=== PATIENT | male | born 1990 | race Caucasian/White ===

== ENCOUNTER 2017-05-18 16:28 | Inpatient (IN) | payer BC, OTHER ==
[2017-05-18] MEDS ORDERED: Lactated Ringers 500 ML IV ONE (16:38)
[2017-05-18] MEDS ORDERED: fentaNYL 100 MCG/2 ML SDV IVPUSH ONE ×2 (16:39→16:59)
[2017-05-18] MEDS: Sodium Chloride 0.9% 10 ML Syringe FLUSH ONE (16:40)
[2017-05-18] MEDS ORDERED: Iopamidol 612 MG/ML 150 ML Bottle IVPUSH ONE ×2 (16:54→17:23)
--- NOTE | 2017-05-18 17:01 | EDM.PDOC ---
ED HPI GENERAL MEDICAL PROBLEM - General Chief Complaint: Abdominal Pain Stated Complaint: POSS INTERNAL BLEEDING Time Seen by Provider: 05/18/17 17:00 - History of Present Illness INITIAL COMMENTS - FREE TEXT/NARRATIVE: 27-year-old male sent here by occupational medicine with significant chest injury. 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 The patient was hit his right chest. He did not hit his head he had no loss of consciousness he has significant right- sided chest discomfort. He does not feel short of breath at this time he's had no nausea vomiting or other problems at this time. The patient is on no routine medications. Patient does smoke about a pack per day however none Right Chest Pain Score (Numeric/FACES): 10 - Related Data Allergies Allergy/AdvReac Type Severity Reaction Status Date / Time cephalexin monohydrate Allergy Cannot Verified 10/25/13 18:14 [From Keflex] Remember Penicillins Allergy Cannot Verified 10/25/13 18:14 Remember Sulfa (Sulfonamide Allergy Cannot Verified 10/25/13 18:14 Antibiotics) Remember Home Meds: Home Meds . [No Known Home Meds] 05/18/17 [History] Past Medical History - Past Health History Medical/Surgical History: Denies Medical/Surgical History Musculoskeletal History: Reports: Other (See Below) Other Musculoskeletal History: right hand reconstruction and left finger surgery Social & Family History - Tobacco Use Smoking Status *Q: Current Every Day Smoker Years of Tobacco use: 12 Packs/Tins Daily: 1 Second Hand Smoke Exposure: No - Alcohol Use Days Per Week of Alcohol Use: 0 - Recreational Drug Use Recreational Drug Use: No Review of Systems - Review of Systems Review Of Systems: See Below Constitutional: Reports: No Symptoms Eyes: Reports: No Symptoms Ears: Reports: No Symptoms Nose: Reports: No Symptoms Mouth/Throat: Reports: No Symptoms Respiratory: Reports: Pleuritic Chest Pain. Denies: Shortness of Breath Cardiovascular: Reports: Chest Pain. Denies: Palpitations GI/Abdominal: Reports: No Symptoms Genitourinary: Reports: No Symptoms Musculoskeletal: Reports: No Symptoms Skin: Reports: No Symptoms Neurological: Reports: No Symptoms Psychiatric: Reports: No Symptoms ED EXAM, GENERAL - Physical Exam Exam: See Below Exam Limited By: No Limitations General Appearance: Alert, Mild Distress (From his chest wall pain) Eye Exam: Bilateral Eye: Normal Inspection Ears: Normal External Exam, Normal Canal, Hearing Grossly Normal, Normal TMs Nose: Normal Inspection, Normal Mucosa, No Blood Throat/Mouth: Normal Inspection, Normal Lips, Normal Teeth, Normal Gums, Normal Oropharynx, Normal Voice, No Airway Compromise Head: Atraumatic, Normocephalic Neck: Normal Inspection, Supple, Non-Tender, Full Range of Motion. No: Tender Midline Respiratory/Chest: Other (Decreased breath sounds on the right) Cardiovascular: Regular Rate, Rhythm, No Edema, No Murmur GI/Abdominal: Other (Hypoactive bowel sounds however they are presentspecific tenderness with palpation no rebound or guarding noted he has what could be developing ecchymosis lateral anterior chest wall and upper abdominal) Back Exam: Normal Inspection. No: CVA Tenderness (L), CVA Tenderness (R), Vertebral Tenderness Extremities: Other (No upper or lower extremity tenderness outpatient pelvis is stable and nontender) Neurological: Alert, Oriented, Normal Cognition Psychiatric: Normal Affect Course - Vital Signs Last Recorded V/S: Last Vital Signs Temp 37.0 C 05/18/17 17:13 Pulse 89 05/18/17 17:13 Resp 20 05/18/17 17:13 BP 136/85 05/18/17 17:13 Pulse Ox 98 05/18/17 17:13 - Orders/Labs/Meds Orders: Active Orders 24 hr Category Date Time Status Chest Abdomen Pelvis w Cont [CT] Stat Exams 05/18/17 16:47 Ordered CBC WITH MANUAL DIFF [HEME] Stat Lab 05/18/17 16:40 Results URINALYSIS W/MICROSCOPIC [UA W/MICROSCOPIC] [URIN] Stat Lab 05/18/17 16:32 Uncollected Labs: Laboratory Tests 05/18/17 05/18/17 Range/Units 16:40 16:40 WBC 20.88 H (4.23-9.07) K/mm3 RBC 5.09 (4.63-6.08) M/mm3 Hgb 15.7 (13.7-17.5) gm/L Hct 46.3 (40.1-51.0) % MCV 91.0 (79.0-92.2) fl MCH 30.8 (25.7-32.2) pg MCHC 33.9 (32.2-35.5) g/dl RDW Std Deviation 42.6 (35.1-43.9) fL Plt Count 316 (163-337) K/mm3 MPV 9.3 L (9.4-12.3) fl Sodium 141 (136-145) mEq/L Potassium 4.4 (3.5-5.1) mEq/L Chloride 101 (98-107) mEq/L Carbon Dioxide 26 (21-32) mEq/L Anion Gap 18.4 H (5-15) BUN 14 (7-18) mg/dL Creatinine 1.1 (0.7-1.3) mg/dL Est Cr Clr Drug Dosing 110.02 mL/min Estimated GFR (MDRD) > 60 (>60) mL/min BUN/Creatinine Ratio 12.7 L (14-18) Glucose 118 H (74-106) mg/dL Calcium 9.6 (8.5-10.1) mg/dL Total Bilirubin 0.4 (0.2-1.0) mg/dL AST 31 (15-37) U/L ALT 29 (16-63) U/L Alkaline Phosphatase 72 (46-116) U/L Total Protein 7.9 (6.4-8.2) g/dl Albumin 4.8 (3.4-5.0) g/dl Globulin 3.1 gm/dL Albumin/Globulin Ratio 1.6 (1-2) Lipase 119 (73-393) U/L Meds: Medications Discontinued Medications Generic Name Dose Route Start Last Admin Trade Name Freq PRN Reason Stop Dose Admin Fentanyl 50 mcg 05/18/17 16:39 05/18/17 16:43 Sublimaze IVPUSH 05/18/17 16:40 50 mcg ONETIME ONE Administration Fentanyl 50 mcg 05/18/17 16:59 05/18/17 17:10 Sublimaze IVPUSH 05/18/17 17:00 50 mcg ONETIME ONE Administration Hydromorphone HCl 0.5 mg 05/18/17 17:35 05/18/17 17:40 Dilaudid IVPUSH 05/18/17 17:36 0.5 mg ONETIME ONE Administration Hydromorphone HCl Confirm 05/18/17 17:39 05/18/17 18:05 Dilaudid Administered 05/18/17 17:40 Not Given Dose 0.5 mg .ROUTE .STK-MED ONE Lactated Ringer's 500 mls @ 500 mls/hr 05/18/17 16:38 05/18/17 16:40 Ringers, Lactated IV 05/18/17 17:37 500 mls/hr .BOLUS ONE Administration Iopamidol 125 ml 05/18/17 16:54 05/18/17 17:56 Isovue-300 (61%) IVPUSH 05/18/17 16:55 125 ml ONETIME ONE Administration Iopamidol 125 ml 05/18/17 17:23 Isovue-300 (61%) IVPUSH 05/18/17 17:24 ONETIME ONE Sodium Chloride 10 ml 05/18/17 16:54 05/18/17 16:40 Saline Flush FLUSH 05/18/17 16:55 10 ml ONETIME ONE Administration - Re-Assessments/Exams Free Text/Narrative Re-Assessment/Exam: 05/18/17 18:06 My interpretation: CT scan shows at least 4 -5 fractures on the right. Small amount of blood around the rib fractures no large pulmonary contusion Abdomen and pelvis show no acute changes. Radiologic interpretation pending at this point labs show white count 21,000 stable H&H his anion gap is elevated he's received some fluid. Initially was treated with fentanyl 50 g this was repeated. He did not have much improvement at least enough to get the CAT scan done this was followed up with 0.5 of Dilaudid. Case reviewed with Dr. Bahena who will assume care patient will be admitted. Departure - Departure Time of Disposition: 18:10 Disposition: Admitted As Inpatient 66 Clinical Impression: Crushing injury of chest Multiple fractures of ribs Qualifiers: Fracture type: closed Laterality: right - Discharge Information Referrals: PCP,Unknown [Ordering Only Provider] - Forms: ED Department Discharge - My Orders Last 24 Hours: My Active Orders 05/18/17 16:32 URINALYSIS W/MICROSCOPIC [UA W/MICROSCOPIC] [URIN] Stat 05/18/17 16:40 CBC WITH MANUAL DIFF [HEME] Stat 05/18/17 16:47 Chest Abdomen Pelvis w Cont [CT] Stat - Assessment/Plan Last 24 Hours: My Active Orders 05/18/17 16:32 URINALYSIS W/MICROSCOPIC [UA W/MICROSCOPIC] [URIN] Stat 05/18/17 16:40 CBC WITH MANUAL DIFF [HEME] Stat 05/18/17 16:47 Chest Abdomen Pelvis w Cont [CT] Stat
[2017-05-18] MEDS ORDERED: HYDROmorphone 0.5 MG/0.5 ML Syringe IVPUSH ONE (17:35)
[2017-05-18] MEDS ORDERED: HYDROmorphone 0.5 MG/0.5 ML Syringe ONE (17:39)
--- NOTE | 2017-05-18 18:47 | CT ---
Chest CT Technique: Multiple axial sections were obtained from above the lung apices inferiorly through the lung bases. Intravenous contrast was utilized. Comparison: Previous chest x-ray performed on the same day, no previous chest CT. Findings: Mediastinum and hilar regions appear within normal limits. No pericardial thickening is seen. Fractures are seen within the anterior first rib on the right side. Fracture is seen with mild displacement within the fifth, sixth and seventh ribs on the right side. No left-sided rib fractures are first seen. Very minimal amount of pleural air is identified on the right side. Subcutaneous air seen within the right chest wall around the rib fractures. Slight atelectasis is seen posteriorly within the right lung base. No significant pulmonary contusion is seen. Sagittal images shows no compression deformity within the thoracic spine. Sternum appears to be intact. Impression: 1. Fractures within the right first rib which is nondisplaced. Mildly displaced fractures are seen within the fifth, sixth and seventh ribs on the right side. 2. Minimal amount of air within the pleural space on the right side. Recommend follow-up chest x-ray in the a.m. to make sure this does not develop into significant pneumothorax. Air within the right chest wall at the level of the rib fractures. 3. Slight basilar atelectasis with no significant pulmonary contusion. No mediastinal abnormality is seen. Diagnostic code #5 CT abdomen and pelvis Technique: Multiple axial sections were obtained from above the dome of the diaphragm inferiorly to the pubic symphysis. Intravenous contrast was utilized. No oral contrast has been given. Comparison: Previous noncontrast CT study of 06/05/14. Findings: Minimal low density lesion within the right lobe of the liver is seen which is felt to be benign and incidental. Liver is otherwise unremarkable. Spleen appears within normal limits. Adrenal glands appear unremarkable. Right kidney shows malrotation which is incidental and a normal variant. Kidneys show symmetric contrast enhancement without hydronephrosis. Pancreas is within normal limits. Aorta appears unremarkable. No retroperitoneal adenopathy is seen. No mesenteric abnormalities are seen. No pelvic mass or adenopathy is seen. No free fluid or inflammatory change is seen within the abdomen or pelvis. Delayed images shows contrast within the distal ureters with no evidence of contrast extravasation. Contrast noted within the bladder. Bone window settings were reviewed which shows no pelvic fracture. Right and left hips appear to be intact. Sagittal images shows no compression deformities within the lumbar spine. Unilateral spondylolytic defect is noted at L5-S1. Impression: 1. Incidental findings. Nothing acute is seen on CT study of the abdomen and pelvis. Diagnostic code #2
[2017-05-18] MEDS: Morphine 4 MG/ML Syringe IVPUSH PRN ×3 (19:02→23:37)
[2017-05-18] MEDS: Nicotine 14 MG/24 Hr Patch TRDERM SCH (19:51)
[2017-05-18] MEDS ORDERED: Ketorolac 30 MG/ML SDV IVPUSH ONE (20:00)
[2017-05-19] MEDS: Ketorolac 30 MG/ML SDV IVPUSH SCH ×2 (03:12→08:21)
[2017-05-19] MEDS: Morphine 4 MG/ML Syringe IVPUSH PRN ×7 (05:38→23:20)
--- NOTE | 2017-05-19 08:54 | CR ---
Chest: Portable view of the chest was obtained. Comparison: Prior chest x-ray of 01/14/15. Right-sided rib fractures are noted. Fractures are seen within the fourth, fifth and sixth ribs. Mild displacement is seen. Minimal pleural air is seen on the right side which remains stable from prior chest CT. Lungs are clear with no parenchymal densities seen. Heart size is normal. Impression: 1. Three mildly displaced right-sided rib fractures are seen on this exam. Minimal amount of pleural air is seen which is stable from prior chest CT. No worsening is seen of this finding. Lungs are clear. Diagnostic code #3
[2017-05-19] MEDS: Acetaminophen/oxyCODONE 325-5 MG Tab PO PRN ×3 (10:51→20:06)
[2017-05-19] MEDS: Ketorolac 10 MG Tab PO SCH ×2 (13:24→20:02)
--- NOTE | 2017-05-19 15:41 | HP ---
DATE OF ADMISSION: 05/18/2017 CHIEF COMPLAINT: Struck by 2-ton pipe in the [place] [employer] in the right upper chest. HISTORY OF PRESENT ILLNESS: This 27-year-old male is admitted at this time following evaluation and studies in the emergency room, following an incident in which he evidently was trying to free up a pipe which was being held up by a hills, but it was stuck in the soil at an angle. He was able to free the pipe and in the course of which the pipe swung and hit him in the chest. He was knocked to the ground. There was no loss of consciousness. He immediately felt pain in his right lateral chest and collarbone area. He was brought to the emergency room. Upon arrival, his vital signs were stable and evaluation of the chest x-ray revealed multiple rib fractures in the mid axillary line in the 4th, 5th, 6th, and 7th ribs and distal first rib on the right side.. The patient also complained of some pain in the sternoclavicular area on the right side. There was no crepitus. Breath sounds were normal and because of the extent of injury and possible other more remote areas being injured by the pressure, a CT scan was performed of the chest, abdomen and pelvis. The abdomen and pelvis were normal with no evidence of any hollow viscus injury. No free air. No fluid. Examination of the chest revealed some subpleural blood collection in the area of the fractures. There was one little bubble of air in the chest wall. No free air in the pleural cavity. The lung did not have any contusion or any evidence of injury to the lung itself. Following this evaluation, the patient was admitted to the hospital for observation and for pain control. Incidentally, the patient has had in the past evidently a problem with pain control medications according to his grandmother who is with him. The patient will be admitted to the ICU overnight for pain control requiring intravenous morphine and Toradol. ALLERGIES: Include Keflex, penicillin, and sulfa. CURRENT MEDICATIONS: He takes no prescription medications. REVIEW OF SYSTEMS: Otherwise unremarkable except for the chest symptom. SOCIAL HISTORY: The patient is and has 3 children. He works in the [employer]. PHYSICAL EXAMINATION: VITAL SIGNS: Reveals afebrile. The patient is 171 pounds, and he is evidently 6 feet 4 inches standing. His heart rate is 92, blood pressure 120/90, respirations 16, and 94% on pulse oximetry. He is not taking deep breaths. EYES, EARS, NOSE, AND THROAT: Unremarkable. No signs of any trauma. He has full range of motion of his neck without pain voluntarily. There is tenderness in the area of the distal first rib on the right side inferior to the sternoclavicular joint and he is tender there. He also has tenderness in the mid axillary area over the areas of fractures of the 4th, 5th, 6th, and 7th ribs. They are minimally displaced. No crepitus. ABDOMEN: Soft with no masses. No tenderness. Bowel sounds are present and no sign of any injury. GENITALIA: Unremarkable. EXTREMITIES: Reveal focal peripheral pulses. No edema. No varicosities. Full range of motion. NEUROLOGIC: Intact to gross exam. ASSESSMENT: At this point is crush injury, right chest with multiple rib fractures. No hemothorax and no pneumothorax of significance. PLAN: The patient will be admitted to the intensive care unit. for observation andprompt access to pain medications intravenously throughout the night and probably will be able to be transferred to the [facility] in the morning. Repeat x-ray will be performed as well as repeat CBC. His white count is elevated and that is probably from the stress of the situation. LEANDRO /[id number] BHAVANA
--- NOTE | 2017-05-19 19:01 | PN ---
DATE OF SERVICE: 05/19/2017 Miguelito is doing well. His pain is controlled, but does require periodic morphine. His chest x-ray this morning shows everything to be fully expanded and no changes from the x-ray yesterday evening. His O2 saturation is good. He is splinting a fair amount and started on an incentive spirometry. He is on a regular diet, which he is tolerating that well and in addition to the morphine periodically, in that, which is given for breakthroughs and his main pain med is Percocet 5 mg with acetaminophen. He is also on Toradol 10 mg every 6 hours. Generally, he is doing well. Not quite ready for home yet and so he will stay the night and we will re-evaluate him in the morning. LEANDRO /[id number]
[2017-05-19] MEDS: Remove Patch*NICOTINE TRDERM SCH (20:01)
[2017-05-19] MEDS: Nicotine 14 MG/24 Hr Patch TRDERM SCH (20:01)
[2017-05-19] MEDS: Sodium Chloride 0.9% 10 ML Syringe FLUSH ONE (20:01)
[2017-05-20] MEDS: Acetaminophen/oxyCODONE 325-5 MG Tab PO PRN ×5 (00:05→21:19)
[2017-05-20] MEDS: Ketorolac 10 MG Tab PO SCH ×4 (02:12→20:02)
[2017-05-20] MEDS: Morphine 4 MG/ML Syringe IVPUSH PRN ×3 (02:22→09:18)
[2017-05-20] MEDS ORDERED: traZODone 50 MG Tab PO PRN (19:28)
--- NOTE | 2017-05-20 19:41 | PN ---
DATE OF SERVICE: 05/20/2017 Miguelito now is in his 2nd day following an injury to his right chest with multiple rib fractures. The x-ray today does show a small apical pneumothorax, which it was hard to see on the other films if present and may be the angle of a portable versus a PA. We will keep him in the hospital to make sure this is not enlarging and repeat the x-ray in the morning. Otherwise, he is doing well. He is up ambulating. His pain appears to be now well controlled on Percocet and everything else is copasetic. MMODAL /[id number]
[2017-05-20] MEDS: Remove Patch*NICOTINE TRDERM SCH (20:00)
[2017-05-20] MEDS: Nicotine 14 MG/24 Hr Patch TRDERM SCH (20:00)
[2017-05-21] MEDS: Morphine 4 MG/ML Syringe IVPUSH PRN ×2 (00:27→06:48)
[2017-05-21] MEDS: Ketorolac 10 MG Tab PO SCH ×3 (02:17→08:14)
[2017-05-21] MEDS: Acetaminophen/oxyCODONE 325-5 MG Tab PO PRN ×2 (03:13→08:15)
--- NOTE | 2017-05-21 08:21 | CR ---
Chest: 2 views of the chest are obtained. Comparison: Prior chest x-ray performed one day earlier (05/20/17): Right-sided pneumothorax is seen. Apical component appears stable measuring around 10-15% however, basilar portion appears increased with air-fluid level being seen within the right basilar pleural space. Pleural thickening is again seen along the rib fractures within the right chest. Slight bibasilar atelectasis is seen. Lungs otherwise are clear. Heart size is normal. Tortuous thoracic aorta is seen. Mild scoliosis is noted. Impression: 1. Air-fluid level now seen within the right basilar pleural space which is an interval change. 2. Apical component of the pneumothorax remains stable at around 10-15%. 2. Other stable findings as described above. Diagnostic code #5
--- NOTE | 2017-05-21 08:30 | CR ---
Chest: Two views of the chest were obtained. Comparison: Prior chest x-ray of 05/19/17. Right-sided pneumothorax has increased in size from prior exam. This now measures about 10-15%. Pleural thickening is seen around the multiple right-sided rib fractures. Slight atelectasis noted within the left lung base. Lungs otherwise are clear. Heart size is normal. Tortuous thoracic aorta is seen. Scoliosis is noted within the spine. Impression: 1. Increasing right sided pneumothorax from prior chest x-ray. Pneumothorax now measures about 10-15%. 2. Stable right sided rib fractures with increased pleural thickening around the rib fractures. 3. Other incidental findings. Diagnostic code #3 I agree with preliminary report issued by [facility] ([facility] report finalized on 05/20/17, 1:13 PM Central Time)
[2017-05-21 09:34] VITALS: BP 122/87
--- NOTE | 2017-05-21 20:55 | DISCH ---
ADMISSION DATE: 05/18/2017 DISCHARGE DATE: 05/21/2017 DISCHARGE DIAGNOSIS: Crush injury, right chest; multiple rib fractures first rib right side, fourth, fifth, sixth right side with small hemopneumothorax. OPERATIONS: None. COURSE IN HOSPITAL: The patient was admitted from the emergency room where he was evaluated with chest x-rays and rib series following a situation in which he was trying to move a pipe, which was evidently suspended some how, but caught in the dirt and when he freed it up, it swung around and hit him in the chest, I believe, knocking him to the ground with no loss of consciousness. The patient was brought to the emergency room. Evaluation there revealed on portable studies multiple rib fractures with a small amount of subpleural blood and some minimal air bubbles in and around the fractured ribs. CT of the abdomen and chest otherwise did not reveal any abnormalities. There was not any significant apical pneumothorax at that time. On CT, his abdomen CT was entirely normal. No evidence of injury to the liver, spleen, or other organs. The patient was admitted and observed, treated with pain medication for his rib fractures and for the first 2 days had a small amount of air present in his chest, which on the views that we obtained later when performed an x-ray PA and lateral did demonstrate a 10% to 15% apical pneumothorax and a small amount of fluid at the base. This has remained stable over the last 24 hours. His pain is controlled with Percocet. This has to be watched because of previous problems he has had with pain medications and the patient on this day is stable for discharge. Discharge medications include 50 Percocet, which will last him approximately 4 to 5 days until he is seen by Dr. Bailey in [facility] in followup for his followup x-ray. He is to return in case his symptoms increase. He was advised not to do any smoking or any heavy exertion, but basically just take it easy and watch TV and to not get involved in any physical activities. He is not to drive until he is cleared off his medications and his followup will be in [facility] with Dr. Bailey for a repeat chest x-ray which has been ordered and see what his status is at that time. He was advised that if his symptoms increase in terms of discomfort or whatever he is to return to the emergency room for re-evaluation. He was also given NicoDerm patches 14 mg prescription that he should use that for the next several weeks and obviously not to do any smoking. FINAL DIAGNOSIS: DISCHARGE MEDICATIONS: DIET: ACTIVITY: FOLLOW-UP: CONDITION ON DISCHARGE: MMMYESHA /[id number]
== END 2017-05-21 11:17 | disposition home or self-care (01) | DRG 200 ==
LOC: JD.ED 16:28 → JD.ICU 18:29 → UNDOADMIN 18:29 → JD.MS 18:29 → JD.ICU 19:07
PROVIDERS: ADMIT Surgery; ATTEND Surgery
DX: S27.2XXA Traumatic hemopneumothorax, initial encounter (principal); S22.41XA Multiple fractures of ribs, right side, initial encounter for closed fracture; G89.11 Acute pain due to trauma; W23.0XXA Caught, crushed, jammed, or pinched between moving objects, initial encounter; Y92.89 Other specified places as the place of occurrence of the external cause; F17.210 Nicotine dependence, cigarettes, uncomplicated; Z88.0 Allergy status to penicillin; Z88.1 Allergy status to other antibiotic agents; Z88.2 Allergy status to sulfonamides
CPT/HCPCS: 36415; 71010; 71010-26; 71020; 71020-26; 71260; 71260-26; 74177; 74177-26; 80053; 81001; 83690; 85025; 96361; 96374; 96375; 99285; 99285-25; A9270-GY; J1170; J1885; J2270; J3010; J7050; J7120; Q9967